=== PATIENT | male | born 1960 | race Caucasian/White ===

== ENCOUNTER → 2020-04-13 | Outpatient (CLI) | payer BC | END | disposition home or self-care (01) | LOC: LABWHC1 15:42 | PROVIDERS: ATTEND Internal Medicine | DX: Z20.828 Contact with and (suspected) exposure to other viral communicable diseases (principal) | CPT/HCPCS: U0003; C9803 ==

== ENCOUNTER 2020-04-18 12:26 | Emergency (ER) | payer BC ==
--- NOTE | 2020-04-18 13:01 | ED ---
Neck Injury/Pain HPI - General Chief Complaint: Neck Pain/Injury Stated Complaint: Neck pain,Tumor in neck Time Seen by Provider: 04/18/20 12:45 Mode of arrival: ambulatory Limitations: no limitations - History of Present Illness Initial Comments: 59-year-old male presenting to emergency Department with a chief complaint of a neck mass. Patient states he has history of calcium stones for the past several years. Patient states they typically come and go with this one has remained longer than usual. He states has been gradually increased in size and now he's having some discomfort. Patient is concerned that the mass is pushing in his carotid artery. Patient is denying drooling, odontophagia or dysphagia. He denies any night sweats fevers or chills. He denies any chest pain or shortness of breath. - Related Data Previous Rx's Medication Instructions Recorded Amoxicillin/Potassium Clav 1 tab PO Q12HR #20 tab 04/18/20 [Augmentin 875-125 Tablet] Allergies Allergy/AdvReac Type Severity Reaction Status Date / Time No Known Allergies Allergy Verified 04/18/20 12:36 Review of Systems ROS Statement: Those systems with pertinent positive or pertinent negative responses have been documented in the HPI. ROS Other: All systems not noted in ROS Statement are negative. Past Medical History Past Medical History: Hypertension Additional Past Medical History / Comment(s): gout History of Any Multi-Drug Resistant Organisms: None Reported Past Surgical History: No Surgical Hx Reported Past Psychological History: No Psychological Hx Reported Smoking Status: Never smoker Past Alcohol Use History: None Reported Past Drug Use History: None Reported General Exam Limitations: no limitations General appearance: alert, in no apparent distress Head exam: Present: atraumatic, normocephalic, normal inspection Eye exam: Present: normal appearance, PERRL, EOMI Pupils: Present: normal accommodation ENT exam: Present: normal exam, normal oropharynx (No signs of lesions or drainage from the salivary ducts.), mucous membranes moist, TM's normal bilaterally, normal external ear exam Neck exam: Present: normal inspection (Palpable mass in the left some mandibular region), tenderness (Mild tenderness in the left submandibular region.), full ROM Respiratory exam: Present: normal lung sounds bilaterally. Absent: respiratory distress, wheezes, rales Cardiovascular Exam: Present: regular rate, normal rhythm, normal heart sounds. Absent: systolic murmur, diastolic murmur Extremities exam: Present: normal inspection, full ROM, normal capillary refill. Absent: tenderness, pedal edema, joint swelling Back exam: Present: normal inspection, full ROM. Absent: tenderness, CVA tenderness (R), CVA tenderness (L) Neurological exam: Present: alert, oriented X3, normal gait Psychiatric exam: Present: normal affect, normal mood Skin exam: Present: warm, dry, intact, normal color Course Vital Signs 04/18/20 12:36 Temperature 98.6 F Pulse Rate 90 Respiratory 16 Rate Blood Pressure 169/72 O2 Sat by Pulse 97 Oximetry Medical Decision Making - Medical Decision Making 59-year-old male presenting to the emergency room with a chief complaint of a neck mass. CT of the neck obtained reveals an enlarged left parotid gland. There is no overlying cellulitic skin changes. Neoplasm cannot be excluded per radiology. I contacted Alphonse who advised the patient can be started on Augmentin. He also said that he will see the patient in the office. Strict return parameters were thoroughly discussed with patient was understanding and agreeable. Patient started on Augmentin in the ED. Will be discharged with 10 day course of Augmentin. Case discussed with physician. Disposition Clinical Impression: Enlarged parotid gland, Neck mass Disposition: HOME SELF-CARE Condition: Stable Instructions (If sedation given, give patient instructions): Parotid Duct Obstruction (ED) Additional Instructions: Follow-up with ENT. Take prescribed medication as directed. Return to emergency department if symptoms worsen. Prescriptions: Amoxicillin/Potassium Clav [Augmentin 875-125 Tablet] 1 tab PO Q12HR #20 tab Is patient prescribed a controlled substance at d/c from ED?: No Referrals: Vivian Aldana MD [Primary Care Provider] - 1-2 days Antonio Nichole DO [Doctor of Osteopathic Medicine] - 1-2 days Time of Disposition: 13:41
--- NOTE | 2020-04-18 13:20 | CT ---
EXAMINATION TYPE: CT soft tissue neck wo con DATE OF EXAM: 04/18/2020 COMPARISON: None HISTORY: Tumor in neck, neck pain CT DLP: 352.0 mGycm CONTRAST: The neck was performed without contrast. The lack of contrast limits evaluation. Imaging was performe d from the skull base through the lung apices. Contrast enhanced CT of the neck was performed from the skull base through the lung apices. AIRWAY: The supraglottic, glottic, and subglottic portions of the airway appear patent and free of mass. SALIVARY GLANDS: There is massive enlargement of the left parotid gland which measures 3.8 x 3.3 x 4 .5 cm. The right sided gland for comparison measures 1.7 x 1.7 x 3.6 cm. Findings may reflect underly ing neoplasm. Infection is not excluded however. The parotid glands are free of mass or inflammatory process. THYROID GLAND: No nodules or masses seen. LYMPH NODES: No adenopathy seen greater than 1cm. LUNG APICES: No nodule or mass is seen. OTHER: Vascular structures are patent. No significant degenerative change of the cervical spine. N o abscess seen. Mucosal thickening left maxillary sinus. IMPRESSION: 1. Nonspecific mass enlargement of the left submandibular gland. Suspect underlying neoplasm. Tractio n not excluded. Correlate clinically. ENT consult advised.
[2020-04-18] MEDS ORDERED: AMOXIC-POT CLAV 875-125MG 1 EACH TAB PO STA (13:40)
[2020-04-18 13:56] VITALS: BP 166/78; PULSE 87; RESP 18; TEMP 98.1
== END 2020-04-18 13:55 | disposition home or self-care (01) ==
LOC: EC 12:26
DX: K11.1 Hypertrophy of salivary gland (principal); R22.1 Localized swelling, mass and lump, neck
CPT/HCPCS: 70490; 99283

== ENCOUNTER → 2020-05-19 | Outpatient (CLI) | payer BC | END | disposition home or self-care (01) | LOC: LABPAT 15:09 | PROVIDERS: ATTEND Otolaryngology | DX: Z01.818 Encounter for other preprocedural examination (principal); I10 Essential (primary) hypertension | CPT/HCPCS: 93005 ==

== ENCOUNTER → 2020-07-08 | Outpatient (CLI) | payer BC | END | disposition home or self-care (01) | LOC: LABWHC1 15:31 | PROVIDERS: ATTEND Otolaryngology | DX: Z01.818 Encounter for other preprocedural examination (principal) | CPT/HCPCS: U0003; C9803 ==

== ENCOUNTER 2024-03-26 08:43 | Emergency (ER) | payer BC ==
[2024-03-26 08:50] VITALS: TEMP 97.6
[2024-03-26] MEDS: ALPRAZolam 0.25 MG TAB PO STA (09:22)
--- NOTE | 2024-03-26 09:24 | ED ---
General Adult HPI - General Chief complaint: Extremity Problem,Nontraumatic Stated complaint: R arm pain/swelling Time Seen by Provider: 03/26/24 08:45 Source: patient Mode of arrival: ambulatory Limitations: no limitations - History of Present Illness Initial comments: Dictation was produced using [employer] dictation software. please excuse any grammatical, word or spelling errors. Chief Complaint: 64-year-old male presents with right wrist pain History of Present Illness: Patient 64-year-old male presents emergency department with right wrist pain. Since yesterday started to have some pain in his right wrist. Hurts more when he flexes and extends it. 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 States that he is pain and swelling over the dorsum of his hand. Denies any numbness tingling paresthesias to his digits. No other complaints. The ROS documented in this emergency department record has been reviewed and confirmed by me. Those systems with pertinent positive or negative responses have been documented in the HPI. All other systems are other negative and/or noncontributory. - Related Data Previous Rx's Medication Instructions Recorded Amoxicillin/Potassium Clav 1 tab PO Q12HR #20 tab 04/18/20 [Augmentin 875-125 Tablet] Allergies Allergy/AdvReac Type Severity Reaction Status Date / Time No Known Allergies Allergy Verified 04/18/20 12:36 Review of Systems ROS Statement: Those systems with pertinent positive or pertinent negative responses have been documented in the HPI. ROS Other: All systems not noted in ROS Statement are negative. Past Medical History Past Medical History: Hypertension, Osteoarthritis (OA) Additional Past Medical History / Comment(s): gout History of Any Multi-Drug Resistant Organisms: None Reported Past Surgical History: No Surgical Hx Reported Additional Past Surgical History / Comment(s): benign tumor removed from neck Past Psychological History: No Psychological Hx Reported Smoking Status: Never smoker Past Alcohol Use History: None Reported Past Drug Use History: None Reported General Exam - General Exam Comments Initial Comments: General: Well-appearing, nontoxic, no acute distress. Head: Normocephalic, atraumatic Eyes: PERRLA, EOMI ENT: Airway patent Chest: Nonlabored breathing Skin: No visual rash, normal skin tone Neuro: Alert and oriented 3 Musculoskeletal: No gross abnormalities Right upper extremity: Very minimal swelling noted over the dorsum of the wrist. Good cap refill. Radial pulse intact. No pain or swelling in the biceps or forearm area Limitations: no limitations Course Vital Signs 03/26/24 08:45 Temperature 97.6 F Pulse Rate 75 Respiratory 18 Rate Blood Pressure 195/85 O2 Sat by Pulse 97 Oximetry Medical Decision Making - Medical Decision Making Was pt. sent in by a medical professional or institution (, PA, PUBLIC HEALTH OFFICER, urgent care, hospital, or detention...) When possible be specific @ -No Did you speak to anyone other than the patient for history (EMS, parent, family, police, friend...)? What history was obtained from this source @ -No Did you review nursing and triage notes (agree or disagree)? Why? @ -I reviewed and agree with nursing and triage notes Were old charts reviewed (outside hosp., previous admission, EMS record, old EKG, old radiological studies, urgent care reports/EKG's, detention records)? Report findings @ -No old charts were reviewed Differential Diagnosis (chest pain, altered mental status, abdominal pain women, abdominal pain men, vaginal bleeding, musculoskeletal, weakness, fever, dyspnea, syncope, headache, dizziness, GI bleed, back pain, seizure, CVA, palpatations, mental health)? @ -Carpal tunnel, wrist arthritis, carpal dislocation EKG interpreted by me (3pts min.). @ -None done X-rays interpreted by me (1pt min.). @ -Wrist x-ray shows radial ulnar joint space narrowing and ossific density CT interpreted by me (1pt min.). @ -None done U/S interpreted by me (1pt. min.). @ -None done What testing was considered but not performed or refused? (CT, X-rays, U/S, labs)? Why? @ -None What meds were considered but not given or refused? Why? @ -None Was smoking cessation discussed for >3mins.? @ -No Were there social determinants of health that impacted care today? How? (Homelessness, low income, unemployed, alcoholism, drug addiction, transportation, low edu. Level, literacy, decrease access to med. care, assisted, rehab)? @ -No Was there de-escalation of care discussed even if they declined (Discuss DNR or withdrawal of care, Hospice)? DNR status @ -No What co-morbidities impacted this encounter? (DM, HTN, Smoking, COPD, CAD, Cancer, CVA, ARF, Chemo, Hep., AIDS, mental health diagnosis, sleep apnea, morbid obesity)? @ -None Was patient admitted / discharged? Hospital course, mention meds given and route, prescriptions, significant lab abnormalities, going to OR and other pertinent info. @ -63-year-old male presents with wrist pain. He performs in a job that promotes repetitive stress to the wrist. Patient has findings of arthritis on his wrist x-ray. Vital signs stable. No high risk features. Patient dis charged with referral to hand specialist. Did you discuss the management of the patient with other professionals (professionals i.e. , PA, PUBLIC HEALTH OFFICER, lab, RT, psych nurse, social service liaison, network security engineer, teacher, chief safety officer, case advocate)? Give summary @ -No Was critical care preformed (if so, how long)? @ -No Undiagnosed new problem with uncertain prognosis? @ -No Drug Therapy requiring intensive monitoring for toxicity (Heparin, Nitro, Insulin, Cardizem)? @ -No Were any procedures done? @ -No Diagnosis/symptom? Acute, or Chronic, or Acute on Chronic? Uncomplicated (without systemic symptoms) or Complicated (systemic symptoms)? @ -Wrist arthritis Side effects of treatment? @ -No Exacerbation, Progression, or Severe Exacerbation? @ -No Poses a threat to life or bodily function? How? (Chest pain, USA, MS, pneumonia, PE, COPD, DKA, ARF, appy, cholecystitis, CVA, Diverticulitis, Homicidal, Suicidal, threat to staff... and all critical care pts) @ -yes Disposition Clinical Impression: Wrist strain Disposition: HOME SELF-CARE Condition: Good Instructions (If sedation given, give patient instructions): Wrist Injury (ED) Is patient prescribed a controlled substance at d/c from ED?: No Referrals: Liz Griggs DO [Doctor of Osteopathic Medicine] - 1-2 days Time of Disposition: 10:15
--- NOTE | 2024-03-26 10:01 | XR ---
EXAMINATION TYPE: XR wrist complete RT DATE OF EXAM: 03/26/2024 CLINICAL HISTORY: pain TECHNIQUE: Frontal, lateral and oblique images of the right wrist are obtained. COMPARISON: None. FINDINGS: There is no acute fracture/dislocation evident. Radioulnar joint space narrowing. Well-corticated oss ific density is nonacute in nature may reflect unfused ossicle. The overlying soft tissue appears unr emarkable. IMPRESSION: There is no acute fracture or dislocation seen. ICD 10 NO FRACTURE, INITIAL EVALUATION [facility], , 03/26/2024 9:58 AM
[2024-03-26] MEDS: traMADol 50 MG STARTER PACK 3 TAB BTL PO STA (10:38)
[2024-03-26 10:42] VITALS: BP 153/68; PULSE 74; RESP 16
== END 2024-03-26 10:42 | disposition home or self-care (01) ==
LOC: EC 08:43
CPT/HCPCS: 93005; 99283

== ENCOUNTER 2024-08-11 11:33 | Observation (INO) | payer BC ==
--- NOTE | 2024-08-11 12:17 | ED ---
General Adult HPI - General Chief complaint: Upper Respiratory Infection Stated complaint: Dehydration Time Seen by Provider: 08/11/24 12:00 Source: patient, RN notes reviewed, old records reviewed Mode of arrival: ambulatory Limitations: no limitations - History of Present Illness Initial comments: This is a 63-year-old male who presents to the emergency department complaining of cough and he states he has been coughing so hard he vomited a few times since Sunday. Patient states he thinks he had a fever as well. Patient denies any shortness of breath except when he is coughing. Patient denies any anterior chest pain just sitting here. Patient denies any back pain. Patient denies any diaphoretic episode. Patient denies any diarrhea. Patient denies getting a flu shot - Related Data Home Medications Medication Instructions Recorded Confirmed Garlic 2,000 mg PO DAILY 03/26/24 08/11/24 Metoprolol Tartrate [Lopressor] 25 mg PO BID 03/26/24 08/11/24 Milk Thistle 150 mg PO BID 03/26/24 08/11/24 Multivit-Min/FA/Lycopen/Lutein 1 tab PO DAILY 03/26/24 08/11/24 [Centrum Silver Tablet] [place]-3/Dha/Epa/Fish Oil [Fish Oil 1 cap PO DAILY 03/26/24 08/11/24 1,000 mg Softgel] Red Yeast Rice 600 mg PO BID 03/26/24 08/11/24 Rosuvastatin [Crestor] 10 mg PO DAILY 03/26/24 08/11/24 Ubidecarenone [Coenzyme Q10] 200 mg PO DAILY 03/26/24 08/11/24 Zinc Gluconate [Zinc] 50 mg PO DAILY 03/26/24 08/11/24 lisinopriL [Zestril] 10 mg PO BID 03/26/24 08/11/24 Allergies Allergy/AdvReac Type Severity Reaction Status Date / Time No Known Allergies Allergy Verified 08/11/24 14:06 Review of Systems ROS Statement: Those systems with pertinent positive or pertinent negative responses have been documented in the HPI. ROS Other: All systems not noted in ROS Statement are negative. Past Medical History Past Medical History: Hypertension, Osteoarthritis (OA) Additional Past Medical History / Comment(s): gout History of Any Multi-Drug Resistant Organisms: None Reported Past Surgical History: No Surgical Hx Reported Additional Past Surgical History / Comment(s): benign tumor removed from neck Past Psychological History: No Psychological Hx Reported Smoking Status: Never smoker Past Alcohol Use History: None Reported Past Drug Use History: None Reported General Exam - General Exam Comments Initial Comments: GENERAL: Patient is well-developed and well-nourished. Patient is nontoxic and well- hydrated and is in mild distress. ENT: Neck is soft and supple. No significant lymphadenopathy is noted. Oropharynx is clear. Moist mucous membranes. Neck has full range of motion without eliciting any pain. EYES: The sclera were anicteric and conjunctiva were pink and moist. Extraocular movements were intact and pupils were equal round and reactive to light. Eyelids were unremarkable. PULMONARY: Unlabored respirations. Good breath sounds bilaterally. No audible rales rhonchi or wheezing was noted. CARDIOVASCULAR: There is a regular rate and rhythm without any murmurs gallops or rubs. ABDOMEN: Soft and nontender with normal bowel sounds. SKIN: Skin is clear with no lesions or rashes and otherwise unremarkable. NEUROLOGIC: Patient is alert and oriented x3. Cranial nerves II through XII are grossly intact. Motor and sensory are also intact. Normal speech, volume and content. Symmetrical smile. MUSCULOSKELETAL: Normal extremities with adequate strength and full range of motion. LYMPHATICS: No significant lymphadenopathy is noted PSYCHIATRIC: Normal psychiatric evaluation. Limitations: no limitations Course Vital Signs 08/11/24 11:34 Temperature 103.1 F H Pulse Rate 84 Respiratory 18 Rate Blood Pressure 182/72 O2 Sat by Pulse 96 Oximetry Medical Decision Making - Medical Decision Making EKG is interpreted by myself but EKG shows a sinus rhythm at 78 bpm GA interval is 219 QRS is 120 QT interval 364 QTc is 397. Patient does have some ST segment elevation in V1 and V2 that seem to form previous EKGs and this does not look consistent with an PA. I did send this EKG to Dr. Croft and he was in agreement it did not look like a STEMI Was pt. sent in by a medical professional or institution (, PA, PONDMAN, urgent care, hospital, or prison...) When possible be specific @ -No Did you speak to anyone other than the patient for history (EMS, parent, family, police, friend...)? What history was obtained from this source @ -No Did you review nursing and triage notes (agree or disagree)? Why? @ -I reviewed and agree with nursing and triage notes Were old charts reviewed (outside hosp., previous admission, EMS record, old EKG, old radiological studies, urgent care reports/EKG's, prison records)? Report findings @ -No old charts were reviewed Differential Diagnosis? @ -Influenza A, influenza B, RSV, COVID, this is not an all-inclusive list Differential Chest Pain: Stable Angina, Unstable Angina, STEMI, NSTEMI Aortic Dissection, Pneumothorax, Musculoskeletal, Esophageal Spasm GERD, Cholecystitis, Pancreatitis, Zoster, this is not meant to be an all-inclusive list. EKG interpreted by me (3pts min.). @ -As above X-rays interpreted by me (1pt min.). @ -Chest x-ray shows viral pneumonia CT interpreted by me (1pt min.). @ -None done U/S interpreted by me (1pt. min.). @ -None done What testing was considered but not performed or refused? (CT, X-rays, U/S, labs)? Why? @ -None What meds were considered but not given or refused? Why? @ -None Did you discuss the management of the patient with other professionals (professionals i.e. , PA, PONDMAN, lab, RT, psych nurse, director social service, lead qa analyst, teacher, customs patrol officer, lead case manager)? Give summary @ -I spoke with [facility] hospitalist they agreed to admit the patient Was smoking cessation discussed for >3mins.? @ -No Was critical care preformed (if so, how long)? @ -No Were there social determinants of health that impacted care today? How? (Homelessness, low income, unemployed, alcoholism, drug addiction, transp ortation, low edu. Level, literacy, decrease access to med. care, prison, rehab)? @ -No Was there de-escalation of care discussed even if they declined (Discuss DNR or withdrawal of care, Hospice)? DNR status @ -No What co-morbidities impacted this encounter? (DM, HTN, Smoking, COPD, CAD, Cancer, CVA, ARF, Chemo, Hep., AIDS, mental health diagnosis, sleep apnea, morbid obesity)? @ -None Was patient admitted / discharged? Hospital course, mention meds given and route, prescriptions, significant lab abnormalities, going to OR and other pertinent info. @ -Patient's troponin was mildly elevated he was also positive for influenza A. Patient will be admitted for 23-hour observation with repeat troponins Undiagnosed new problem with uncertain prognosis? @ -No Drug Therapy requiring intensive monitoring for toxicity (Heparin, Nitro, Insulin, Cardizem)? @ -No Were any procedures done? @ -No Diagnosis/symptom? @ -Chest pain Acute, or Chronic, or Acute on Chronic? @ -Acute Uncomplicated (without systemic symptoms) or Complicated (systemic symptoms)? @ -Complicated Side effects of treatment? @ -No Exacerbation, Progression, or Severe Exacerbation? @ -No Poses a threat to life or bodily function? How? (Chest pain, USA, PA, pneumonia, PE, COPD, DKA, ARF, appy, cholecystitis, CVA, Diverticulitis, Homicidal, Suicidal, threat to staff... and all critical care pts) @ -Yes this could lead to an PA and endorgan dysfunction Diagnosis/symptom? @ -Influenza A Acute, or Chronic, or Acute on Chronic? @ -Acute Uncomplicated (without systemic symptoms) or Complicated (systemic symptoms)? @ -Complicated Side effects of treatment? @ -None Exacerbation, Progression, or Severe Exacerbation] @ -No Poses a threat to life or bodily function? @ -No - Lab Data Result diagrams: 08/11/24 12:30 08/11/24 12:30 Lab Results 08/11/24 08/11/24 08/11/24 Range/Units 12:30 12:30 12:30 WBC 6.6 (3.8-10.6) k/uL RBC 4.88 (4.30-5.90) m/uL Hgb 13.3 (13.0-17.5) gm/dL Hct 42.0 (39.0-53.0) % MCV 86.0 (80.0-100.0) fL MCH 27.3 (25.0-35.0) pg MCHC 31.7 (31.0-37.0) g/dL RDW 13.2 (11.5-15.5) % Plt Count 162 (150-450) k/uL MPV 8.2 Neutrophils % 81 % Lymphocytes % 8 % Monocytes % 8 % Eosinophils % 1 % Basophils % 0 % Neutrophils # 5.3 (1.3-7.7) k/uL Lymphocytes # 0.5 L (1.0-4.8) k/uL Monocytes # 0.6 (0-1.0) k/uL Eosinophils # 0.0 (0-0.7) k/uL Basophils # 0.0 (0-0.2) k/uL Sodium 132 L (137-145) mmol/L Potassium 4.2 (3.5-5.1) mmol/L Chloride 99 (98-107) mmol/L Carbon Dioxide 21 L (22-30) mmol/L Anion Gap 12 mmol/L BUN 16 (9-20) mg/dL Creatinine 1.04 (0.66-1.25) mg/dL Est GFR (CKD-EPI)AfAm 89 (>60 ml/min/1.73 sqM) Est GFR (CKD-EPI)NonAf 77 (>60 ml/min/1.73 sqM) Glucose 110 H (74-99) mg/dL Calcium 8.3 L (8.4-10.2) mg/dL Total Bilirubin 0.6 (0.2-1.3) mg/dL AST 43 (17-59) U/L ALT 27 (4-49) U/L Alkaline Phosphatase 44 (38-126) U/L Troponin I (0.000-0.034) ng/mL Total Protein 6.4 (6.3-8.2) g/dL Albumin 3.8 (3.5-5.0) g/dL Influenza Type A (PCR) Detected A (Not Detectd) Influenza Type B (PCR) Not Detected (Not Detectd) RSV (PCR) Not Detected (Not Detectd) SARS-CoV-2 (PCR) Not Detected (Not Detectd) 08/11/24 Range/Units 12:30 WBC (3.8-10.6) k/uL RBC (4.30-5.90) m/uL Hgb (13.0-17.5) gm/dL Hct (39.0-53.0) % MCV (80.0-100.0) fL MCH (25.0-35.0) pg MCHC (31.0-37.0) g/dL RDW (11.5-15.5) % Plt Count (150-450) k/uL MPV Neutrophils % % Lymphocytes % % Monocytes % % Eosinophils % % Basophils % % Neutrophils # (1.3-7.7) k/uL Lymphocytes # (1.0-4.8) k/uL Monocytes # (0-1.0) k/uL Eosinophils # (0-0.7) k/uL Basophils # (0-0.2) k/uL Sodium (137-145) mmol/L Potassium (3.5-5.1) mmol/L Chloride (98-107) mmol/L Carbon Dioxide (22-30) mmol/L Anion Gap mmol/L BUN (9-20) mg/dL Creatinine (0.66-1.25) mg/dL Est GFR (CKD-EPI)AfAm (>60 ml/min/1.73 sqM) Est GFR (CKD-EPI)NonAf (>60 ml/min/1.73 sqM) Glucose (74-99) mg/dL Calcium (8.4-10.2) mg/dL Total Bilirubin (0.2-1.3) mg/dL AST (17-59) U/L ALT (4-49) U/L Alkaline Phosphatase (38-126) U/L Troponin I 0.044 H* (0.000-0.034) ng/mL Total Protein (6.3-8.2) g/dL Albumin (3.5-5.0) g/dL Influenza Type A (PCR) (Not Detectd) Influenza Type B (PCR) (Not Detectd) RSV (PCR) (Not Detectd) SARS-CoV-2 (PCR) (Not Detectd) Disposition Clinical Impression: Influenza, Chest pain Disposition: ADMITTED IP TO THIS HOSP Referrals: Vivian Aldana MD [Primary Care Provider] - 1-2 days Time of Disposition: 14:45
[2024-08-11] MEDS: ACETAMINOPHEN TAB 500 MG TAB PO STA (12:41)
[2024-08-11] MEDS: IBUPROFEN 600 MG TAB PO STA (12:41)
[2024-08-11] MEDS: SODIUM CHLORIDE 0.9% 1,000 ML IV ONE (12:42)
[2024-08-11 12:58] LABS: Basophils % (A) 0 %; Eosinophils % (A) 1 %; HGB 13.3 gm/dL (13.0-17.5); Lymphocytes # (A) 0.5 k/uL (1.0-4.8); Lymphocytes % (A) 8 %; MCH 27.3 pg (25.0-35.0); MCHC 31.7 g/dL (31.0-37.0); Mean Platelet Volume 8.2; Monocytes # (A) 0.6 k/uL (0-1.0); Monocytes % (A) 8 %; Neutrophils # (A) 5.3 k/uL (1.3-7.7); Neutrophils % (A) 81 %; Platelet Count 162 k/uL (150-450); RBC 4.88 m/uL (4.30-5.90); RDW 13.2 % (11.5-15.5); WBC 6.6 k/uL (3.8-10.6)
[2024-08-11 13:08] LABS: ALT 27 U/L (4-49); AST 43 U/L (17-59); African American GFR (CKD) 89 (>60 ml/min/1.73 sqM); Albumin 3.8 g/dL (3.5-5.0); Alkaline Phosphatase 44 U/L (38-126); Anion Gap 12 mmol/L; Blood Urea Nitrogen 16 mg/dL (9-20); Calcium 8.3 mg/dL (8.4-10.2); Carbon Dioxide 21 mmol/L (22-30); Chloride 99 mmol/L (98-107); Glucose 110 mg/dL (74-99); Non-African American GFR(CKD) 77 (>60 ml/min/1.73 sqM); Potassium 4.2 mmol/L (3.5-5.1); Sodium 132 mmol/L (137-145); Total Bilirubin 0.6 mg/dL (0.2-1.3); Total Protein 6.4 g/dL (6.3-8.2)
[2024-08-11 13:32] LABS: Influenza A Detected (Not Detectd); Influenza B Not Detected (Not Detectd); RSV Not Detected (Not Detectd)
--- NOTE | 2024-08-11 14:18 | XR ---
EXAMINATION TYPE: XR chest 2V DATE OF EXAM: 08/11/2024 1:43 PM COMPARISON: None CLINICAL INDICATION: Male, 63 years old with history of Chest Trauma; [facility] TECHNIQUE: XR chest 2V Frontal and lateral views of the chest. FINDINGS: Lungs/Pleura: There is no evidence of pleural effusion, focal consolidation, or pneumothorax. Pulmonary vascularity: Unremarkable. Heart/mediastinum: Cardiomediastinal silhouette is unremarkable. Musculoskeletal: No acute osseous pathology. Other findings: None IMPRESSION: Low lung volumes with a generalized hazy appearance which could represent atelectasis versus atypical pneumonia. [facility], , 08/11/2024 2:16 PM
[2024-08-11] MEDS ORDERED: NITROGLYCERIN SL TABS 0.4 MG TAB SUBLINGUAL PRN (14:45)
[2024-08-11] MEDS: ASPIRIN 81 MG PO STA (14:58)
[2024-08-11] MEDS: NITROGLYCERIN OINT 1 INCH/GM PACKET TOPICAL SCH (17:48)
[2024-08-12] MEDS: ACETAMINOPHEN TAB 500 MG TAB PO PRN (02:20)
[2024-08-12] MEDS: METOPROLOL TARTRATE 25 MG TAB PO SCH (08:26)
[2024-08-12] MEDS: lisinopriL 10 MG TAB PO SCH (08:26)
[2024-08-12] MEDS: ASPIRIN 325 MG TAB PO SCH (08:26)
[2024-08-12] MEDS: ATORVASTATIN 20 MG TAB PO SCH (08:26)
[2024-08-12] MEDS: OSELTAMIVIR 75 MG CAP PO SCH (08:27)
[2024-08-12 09:47] LABS: VLDL Calculation 14.38 mg/dL (5.00-40.00)
--- NOTE | 2024-08-12 10:55 | P.CRDCN ---
History of Present Illness Consult date: 08/12/24 Consult reason: chest pain History of present illness: This is a 63-year-old male patient previously seen by Dr. Rodriguez in 2021 with past medical history of hyperlipidemia, hypertension. We have been asked to evaluate the patient for chest pain. Patient states that he developed a cough was feeling weak and dizzy. He states some people at work had COVID and influenza B and he decided to go to the urgent care center. He was told that he was dehydrated and was told to go into the hospital for further evaluation. Patient ended up testing positive for influenza A. He denies any other symptoms. No chest pain, no palpitations. He states he is usually very active and does not have chest pain when he is active. We have been asked to evaluate the patient for elevated troponins. Blood pressure 143/69, heart rate in the 70s, pulse ox 94% on room air. Patient has been started on Tamiflu, status post 1 L of IV fluids Tylenol and Motrin. Patient is seen today in the emergency center waiting for a bed on the cardiac stepdown unit. Discussed the results of testing and recommendations. At this time hold off on cardiac catheterization as patient is having no symptoms at this time. He is in agreement to hold off. -EKG: Sinus rhythm with LVH with T wave changes present on previous EKGs but more pronounced, STEMI ruled out. -Chest x-ray: Atelectasis versus pneumonia -Laboratory studies: CBC within normal limits. Sodium 132 and potassium 4.2, creatinine 1.04. Troponins 0.044, 0.051 and 0.041. Triglycerides 71, choleste rol 111, HDL 32, LDL 64. Influenza A and B a detected. -Home cardiac medications: Lisinopril 10 mg twice daily, Lopressor 25 mg twice daily, omega-3, rosuvastatin 10 mg daily. -Echocardiogram performed in the office on 07/02/2020 revealed EF 60%, aortic valve is calcified, mild mitral regurgitation. -Cardiolite stress test performed in the office on 07/07/2020 was a negative stress test. Abnormal perfusion with mild reversible ischemia involving the inferior lateral segment. Gated images showed normal wall motion and thickening. At that time, cardiac cath to be done if patient developed any s ymptoms. Review Of Systems: At the time of my exam: CONSTITUTIONAL: Denies fever or chills. HEENT: Denies blurred vision, vision changes, or eye pain. Denies hemoptysis CARDIOVASCULAR: Denies chest pain. Denies orthopnea. Denies PND. Denies palpitations RESPIRATORY: Denies shortness of breath. GASTROINTESTINAL: Denies abdominal pain. Denies nausea or vomiting. HEMATOLOGIC: Denies bleeding disorders. GENITOURINARY: Denies any blood in urine. SKIN: Denies puritis. Denies rash. Physical examination: Gen: This is a 63-year-old male in no acute distress VS: reviewed HEENT: Head is atraumatic, normocephalic. Pupils equal, round. Sclerae is anicteric. NECK: Supple. No JVD. LUNGS: Clear to auscultation. No wheezes or rhonchi. No intercostal retractions. HEART: Regular rate and rhythm. No murmur. ABDOMEN: Soft No tenderness. EXTREMITIES: No pedal edema. No calf tenderness. NEUROLOGICAL: Patient is awake, alert and oriented x3. Assessment: Elevated troponins most likely secondary to influenza Influenza A Abnormal stress test in 2020 Hypertension Hyperlipidemia Family history of premature coronary artery disease Plan: Resume patient's home cardiac medications Obtain 2-D echocardiogram and Doppler study to assess cardiac structure and function Patient will need CAD evaluation including echocardiogram. Most likely consider outpatient stress testing at a later date once influenza symptoms have resolved. Further recommendations to follow based upon clinical course At the time of discharge, patient may follow-up in the office with Dr. Avila in 2 weeks Thank you kindly for this consultation. Nurse practitioner note has been reviewed, I agree with documented findings and plan of care. Patient was seen and examined. Past Medical History Past Medical History: Hypertension, Osteoarthritis (OA) Additional Past Medical History / Comment(s): gout History of Any Multi-Drug Resistant Organisms: None Reported Past Surgical History: No Surgical Hx Reported Additional Past Surgical History / Comment(s): benign tumor removed from neck Past Psychological History: No Psychological Hx Reported Smoking Status: Never smoker Past Alcohol Use History: None Reported Past Drug Use History: None Reported Medications and Allergies Home Medications Medication Instructions Recorded Confirmed Type Garlic 2,000 mg PO DAILY 03/26/24 08/11/24 History Metoprolol Tartrate [Lopressor] 25 mg PO BID 03/26/24 08/11/24 History Milk Thistle 150 mg PO BID 03/26/24 08/11/24 History Multivit-Min/FA/Lycopen/Lutein 1 tab PO DAILY 03/26/24 08/11/24 History [Centrum Silver Tablet] [place]-3/Dha/Epa/Fish Oil [Fish Oil 1 cap PO DAILY 03/26/24 08/11/24 History 1,000 mg Softgel] Red Yeast Rice 600 mg PO BID 03/26/24 08/11/24 History Rosuvastatin [Crestor] 10 mg PO DAILY 03/26/24 08/11/24 History Ubidecarenone [Coenzyme Q10] 200 mg PO DAILY 03/26/24 08/11/24 History Zinc Gluconate [Zinc] 50 mg PO DAILY 03/26/24 08/11/24 History lisinopriL [Zestril] 10 mg PO BID 03/26/24 08/11/24 History Allergies Allergy/AdvReac Type Severity Reaction Status Date / Time No Known Allergies Allergy Verified 08/11/24 14:06 Physical Exam Vitals: Vital Signs Temp Pulse Resp BP Pulse Ox 08/12/24 06:08 98.7 F 69 20 148/67 94 L 08/12/24 03:24 82 20 122/80 94 L 08/12/24 02:11 100.0 F H 79 18 149/78 95 08/11/24 21:53 89 20 164/80 97 08/11/24 19:00 81 18 130/66 98 08/11/24 16:28 98.9 F 71 18 148/73 95 08/11/24 14:59 67 18 119/61 92 L 08/11/24 11:34 103.1 F H 84 18 182/72 96 Results 08/11/24 12:30 08/11/24 12:30 Cardiac Enzymes 08/11/24 08/11/24 08/11/24 Range/Units 12:30 12:30 16:05 AST 43 (17-59) U/L Troponin I 0.044 H* 0.051 H* (0.000-0.034) ng/mL 08/11/24 Range/Units 20:32 AST (17-59) U/L Troponin I 0.041 H* (0.000-0.034) ng/mL CBC 08/11/24 Range/Units 12:30 WBC 6.6 (3.8-10.6) k/uL RBC 4.88 (4.30-5.90) m/uL Hgb 13.3 (13.0-17.5) gm/dL Hct 42.0 (39.0-53.0) % Plt Count 162 (150-450) k/uL Comprehensive Metabolic Panel 08/11/24 Range/Units 12:30 Sodium 132 L (137-145) mmol/L Potassium 4.2 (3.5-5.1) mmol/L Chloride 99 (98-107) mmol/L Carbon Dioxide 21 L (22-30) mmol/L BUN 16 (9-20) mg/dL Creatinine 1.04 (0.66-1.25) mg/dL Glucose 110 H (74-99) mg/dL Calcium 8.3 L (8.4-10.2) mg/dL AST 43 (17-59) U/L ALT 27 (4-49) U/L Alkaline Phosphatase 44 (38-126) U/L Total Protein 6.4 (6.3-8.2) g/dL Albumin 3.8 (3.5-5.0) g/dL Current Medications Generic Name Dose Route Start Last Admin Trade Name Freq PRN Reason Stop Dose Admin Acetaminophen 1,000 mg 08/11/24 14:51 08/12/24 02:20 Acetaminophen Tab 500 Mg Tab PO 1,000 mg Q6HR PRN Administration Fever and/ or Pain Aspirin 325 mg 08/12/24 09:00 Aspirin 325 Mg Tab PO DAILY [facility] Atorvastatin Calcium 20 mg 08/12/24 09:00 Atorvastatin 20 Mg Tab PO DAILY [facility] Lisinopril 10 mg 08/12/24 09:00 Lisinopril 10 Mg Tab PO BID [facility] Metoprolol Tartrate 25 mg 08/12/24 09:00 Metoprolol Tartrate 25 Mg Tab PO BID [facility] Nitroglycerin 0.4 mg 08/11/24 14:45 Nitroglycerin Sl Tabs 0.4 Mg Tab SUBLINGUAL Q5M PRN Chest Pain Nitroglycerin 1 inch 08/11/24 18:00 08/12/24 06:20 Nitroglycerin Oint 1 Inch/Gm Packet TOPICAL 1 inch Q6HR [facility]IALUISA Administration Oseltamivir Phosphate 75 mg 08/12/24 09:00 Oseltamivir 75 Mg Cap PO 08/16/24 21:01 Q12HR [facility] Protocol 08/11/24 12:30 08/11/24 12:30
[2024-08-12] MEDS ORDERED: guaiFENesin-DM 600/30MG 1 EACH TAB.ER.12H PO PRN (12:20)
[2024-08-12] MEDS ORDERED: DEXTROSE 50% SYRINGE 50 ML IVP PRN ×2 (16:03)
--- NOTE | 2024-08-12 16:05 | P.HPIM ---
History of Present Illness H&P Date: 08/12/24 Patient is a 63-year-old male with history of hypertension and osteoarthritis was re-directed by urgent care physician to come to the ER yesterday on 08/11/2024 after he was complaining of worsening cough since Sunday. Patient has been endorsing dry cough since Sunday which has gotten progressively worse associated with mild shortness of breath and chest pain. Patient reports that he came in contact with his coworker was recently tested positive for influenza virus. Patient went to urgent care yesterday and he was complaining of some chest pain in the midsternal region. Therefore, he was was advised to come to the ER for further evaluation. Patient reports that his chest pain is worse when he is coughing and taking deep breaths. He also initially endorsed mild shortness of breath with some nausea but no vomiting. He reports no prior history of myocardial infarction. Family history is positive for myocardial infarction in his dad in his 70s. Patient reports no recent history of travel, use of anticoagulation, hospitalization. Reports no use of illicit drug. He is a non-smoker and a nondrinker. Initial lab evaluation in the ER shows WBC 6.6, hemoglobin 13.3, hematocrit 42.0, MCV 86.0, platelet count 162, sodium 132, potassium 4.2, bicarb 21, BUN 16, creatinine 1.04, glucose 110, calcium 8.3, AST 43, ALT 27, troponin I 0.044, (subsequently, 0.051, 0.041). Serology positive for influenza type A. Chest x-ray shows no acute cardiopulmonary process. EKG in the ER shows sinus rhythm with first-degree AV block, ventricular rate 78 bpm, OH interval of 290 ms, QRS duration of 120 ms, QTc 397 ms. Poor R wave progression noted. Nonspecific ST-T wave changes noted. Review of systems: Pertinent positives and negatives as discussed in HPI, a complete review of systems was performed and all other systems are negative. Social history: As above in HPI Family History: As above in HPI Physical examination: Vital signs reviewed General: non toxic, no distress, appears at stated age, overweight Derm: no unusual rashes/lesions, warm Head: atraumatic, normocephalic, symmetric Eyes: EOMI, no lid lag, anicteric sclera, pupils equal round reactive to light ENT: Nose and ears atraumatic Neck: No cervical lymphadenopathy, trachea midline, supple Mouth: no lip lesion, mucus membranes moist Cardiovascular: S1S2 reg, no murmur, positive dorsalis pedis pulse bilateral, no edema Lungs: CTA bilateral, no rhonchi, no rales, no accessory muscle use Abdominal: soft, nontender to palpation, no guarding Ext: muscle strength 5 out of 5 in all 4 extremities grossly, no gross muscle atrophy, no contractures, Neuro: CN II-XI grossly intact, no gross focal neuro deficits Psych: Alert, oriented, appropriate affect Assessment/Plan: This is a Patient is a 63-year-old male with history of hypertension and osteoarthritis was directed by urgent care physician to come to the ER yesterday on 08/11/2024 after he was complaining of worsening cough since Sunday. Case was discussed with the Emergency Room provider and decision was made to admit the patient for atypical chest pain, rule out ACS and upper respite tract infection with influenza type a positive Initial lab evaluation in the ER shows WBC 6.6, hemoglobin 13.3, hematocrit 42.0, MCV 86.0, platelet count 162, sodium 132, potassium 4.2, bicarb 21, BUN 16, creatinine 1.04, glucose 110, calcium 8.3, AST 43, ALT 27, troponin I 0.044, (subsequently, 0.051, 0.041). Serology positive for influenza type A. Chest x-ray shows no acute cardiopulmonary process. EKG in the ER shows sinus rhythm with first-degree AV block, ventricular rate 78 bpm, OH interval of 290 ms, QRS duration of 120 ms, QTc 397 ms. Poor R wave progression noted. Nonspecific ST-T wave changes noted. Active: #Atypical chest pain, rule out ACS #Type II myocardial infarction in the setting of influenza type A Heart score 3 points which is low score with a risk of MACE of 0.9 to 1.7% Oxygen therapy as needed Patient received 325 mg p.o. once in ER Start aspirin 81 mg daily Sublingual nitroglycerin and ointment patch Resume Lipitor 20 mg p.o. daily and Lopressor 25 mg p.o. twice daily Consult cardiology, appreciate recs Order echocardiogram Continue cardiac telemetry #Acute Influenza type A #Acute tracheobronchitis Start Tamiflu 75 mg p.o. twice daily Monitor CBC #Hyperglycemia Accu-Cheks and sliding scale insulin Check HbA1c Monitor for hypoglycemia #Hypovolemic hyponatremia secondary poor oral intake Continue monitor sodium levels Encourage oral intake Monitor BMP Chronic conditions #Hypertension #Osteoarthritis Resume lisinopril 10 mg po BID DVT prophylaxis: Lovenox 40 mg subcu daily GI prophylaxis: None F: None E: Replete as needed N: Heart healthy diet A: Ambulatory at baseline The patient is admitted with an anticipated less than than 2 midnight stay for evaluation of atypical chest pain. CODE STATUS: Full code Discussed with: Patient Anticipated discharge place: Pending clinical course Dictation was produced using [employer] dictation software. Please excuse any grammatical, word or spelling errors. Attestation I have seen and examined this patient with my resident , discussed the same with the resident/EDIS, and agree with the dictator's assessment and plan as written GENERAL: The patient is alert and oriented x3, not in any acute distress. Well developed, well nourished. HEENT: Pupils are round and equally reacting to light. EOMI. No scleral icterus. No conjunctival pallor. Normocephalic, atraumatic. No pharyngeal erythema. No thyromegaly. CARDIOVASCULAR: S1 and S2 present. No murmurs, rubs, or gallops. PULMONARY: Chest is clear to auscultation, no wheezing or crackles. ABDOMEN: Soft, nontender, nondistended, normoactive bowel sounds. No palpable organomegaly. MUSCULOSKELETAL: No joint swelling or deformity. EXTREMITIES: No cyanosis, clubbing, or pedal edema. NEUROLOGICAL: Gross neurological examination did not reveal any focal deficits. SKIN: No rashes. Dr. John jamil Past Medical History Past Medical History: Hypertension, Osteoarthritis (OA) Additional Past Medical History / Comment(s): gout History of Any Multi-Drug Resistant Organisms: None Reported Past Surgical History: No Surgical Hx Reported Additional Past Surgical History / Comment(s): benign tumor removed from neck Past Psychological History: No Psychological Hx Reported Smoking Status: Never smoker Past Alcohol Use History: None Reported Past Drug Use History: None Reported Medications and Allergies Home Medications Medication Instructions Recorded Confirmed Type Garlic 2,000 mg PO DAILY 03/26/24 08/11/24 History Metoprolol Tartrate [Lopressor] 25 mg PO BID 03/26/24 08/11/24 History Milk Thistle 150 mg PO BID 03/26/24 08/11/24 History Multivit-Min/FA/Lycopen/Lutein 1 tab PO DAILY 03/26/24 08/11/24 History [Centrum Silver Tablet] [place]-3/Dha/Epa/Fish Oil [Fish Oil 1 cap PO DAILY 03/26/24 08/11/24 History 1,000 mg Softgel] Red Yeast Rice 600 mg PO BID 03/26/24 08/11/24 History Rosuvastatin [Crestor] 10 mg PO DAILY 03/26/24 08/11/24 History Ubidecarenone [Coenzyme Q10] 200 mg PO DAILY 03/26/24 08/11/24 History Zinc Gluconate [Zinc] 50 mg PO DAILY 03/26/24 08/11/24 History lisinopriL [Zestril] 10 mg PO BID 03/26/24 08/11/24 History Allergies Allergy/AdvReac Type Severity Reaction Status Date / Time No Known Allergies Allergy Verified 08/11/24 14:06 Physical Exam Vitals: Vital Signs Temp Pulse Resp BP Pulse Ox 08/12/24 08:27 73 18 94 L 08/12/24 08:26 73 16 143/69 95 08/12/24 06:08 98.7 F 69 20 148/67 94 L 08/12/24 03:24 82 20 122/80 94 L 08/12/24 02:11 100.0 F H 79 18 149/78 95 08/11/24 21:53 89 20 164/80 97 08/11/24 19:00 81 18 130/66 98 08/11/24 16:28 98.9 F 71 18 148/73 95 08/11/24 14:59 67 18 119/61 92 L 08/11/24 11:34 103.1 F H 84 18 182/72 96 Results CBC & Chem 7: 08/13/24 05:34 08/13/24 05:34 Labs: Abnormal Lab Results - Last 24 Hours (Table) 08/11/24 08/11/24 08/11/24 Range/Units 12:30 12:30 12:30 Lymphocytes # 0.5 L (1.0-4.8) k/uL Sodium 132 L (137-145) mmol/L Carbon Dioxide 21 L (22-30) mmol/L Glucose 110 H (74-99) mg/dL Calcium 8.3 L (8.4-10.2) mg/dL Troponin I (0.000-0.034) ng/mL HDL Cholesterol (40.00-60.00) mg/dL Influenza Type A (PCR) Detected A (Not Detectd) 08/11/24 08/11/24 08/11/24 Range/Units 12:30 12:30 16:05 Lymphocytes # (1.0-4.8) k/uL Sodium (137-145) mmol/L Carbon Dioxide (22-30) mmol/L Glucose (74-99) mg/dL Calcium (8.4-10.2) mg/dL Troponin I 0.044 H* 0.051 H* (0.000-0.034) ng/mL HDL Cholesterol 32.60 L (40.00-60.00) mg/dL Influenza Type A (PCR) (Not Detectd) 08/11/24 Range/Units 20:32 Lymphocytes # (1.0-4.8) k/uL Sodium (137-145) mmol/L Carbon Dioxide (22-30) mmol/L Glucose (74-99) mg/dL Calcium (8.4-10.2) mg/dL Troponin I 0.041 H* (0.000-0.034) ng/mL HDL Cholesterol (40.00-60.00) mg/dL Influenza Type A (PCR) (Not Detectd)
[2024-08-12 17:03] LABS: Glucose,Whole Blood 106 mg/dL (70-110)
[2024-08-12] MEDS: INSULIN LISPRO (HumaLOG) 100 UNIT/ML 10 mL VL SQ SCH (17:30)
[2024-08-12] MEDS: ENOXAPARIN 40 MG/0.4 ML SYRINGE SQ SCH (17:37)
[2024-08-12 20:33] LABS: Glucose,Whole Blood 105 mg/dL (70-110)
[2024-08-13 06:14] LABS: Glucose,Whole Blood 95 mg/dL (70-110)
[2024-08-13 06:41] LABS: Basophils % (A) 0 %; Eosinophils % (A) 0 %; HCT 42.2 % (39.0-53.0); HGB 12.9 gm/dL (13.0-17.5); Lymphocytes % (A) 26 %; MCH 26.5 pg (25.0-35.0); MCHC 30.5 g/dL (31.0-37.0); MCV 86.9 fL (80.0-100.0); Mean Platelet Volume 8.5; Monocytes # (A) 0.3 k/uL (0-1.0); Monocytes % (A) 8 %; Neutrophils # (A) 2.5 k/uL (1.3-7.7); Neutrophils % (A) 64 %; Platelet Count 164 k/uL (150-450); RBC 4.85 m/uL (4.30-5.90); RDW 13.3 % (11.5-15.5); WBC 3.9 k/uL (3.8-10.6)
[2024-08-13 07:08] LABS: African American GFR (CKD) >90 (>60 ml/min/1.73 sqM); Anion Gap 9 mmol/L; Blood Urea Nitrogen 18 mg/dL (9-20); Calcium 7.7 mg/dL (8.4-10.2); Carbon Dioxide 25 mmol/L (22-30); Chloride 102 mmol/L (98-107); Glucose 99 mg/dL (74-99); Non-African American GFR(CKD) 83 (>60 ml/min/1.73 sqM); Potassium 4.1 mmol/L (3.5-5.1); Sodium 136 mmol/L (137-145)
[2024-08-13] MEDS: ASPIRIN 81 MG PO SCH (08:16)
[2024-08-13 08:29] VITALS: RESP 20
[2024-08-13 11:36] VITALS: BP 130/61; PULSE 67; TEMP 99.6
[2024-08-13 11:38] LABS: Glucose,Whole Blood 91 mg/dL (70-110)
--- NOTE | 2024-08-13 13:18 | CA ---
Transthoracic Echo Report Name: Ryan Bird Age: 63 Gender: M : 1960 Exam Date: 08/13/2024 08:14 Exam Location: [facility] Ht (in): 69 Wt (lb): 236 Ordering Physician: Henry Oden MD Attending/Referring Phys: Automation Clerk Raghav Greenfield RDCS Procedure CPT: Indications: Cardiac structure eval; Elevated trops Cardiac Hx: Technical Quality: Good Contrast 1: Total Dose (mL): Contrast 2: Total Dose (mL): MEASUREMENTS (Male / Female) Normal Values 2D ECHO LV Diastolic Diameter PLAX 5.5 cm 4.2 - 5.9 / 3.9 - 5.3 cm LV Systolic Diameter PLAX 3.8 cm IVS Diastolic Thickness 1.2 cm 0.6 - 1.0 / 0.6 - 0.9 cm LVPW Diastolic Thickness 1.2 cm 0.6 - 1.0 / 0.6 - 0.9 cm LV Relative Wall Thickness 0.4 RV Internal Dim ED PLAX 3.4 cm LVOT Diameter 1.9 cm Aortic Root Diameter 3.1 cm LA Systolic Diameter LX 4.6 cm 3.0 - 4.0 / 2.7 - 3.8 cm LV Diastolic Volume MOD BP 192.1 cm??? 67 - 155 / 56 - 104 cm??? LV Systolic Volume MOD BP 88.9 cm??? 22 - 58 / 19 - 49 cm??? LV Ejection Fraction MOD BP 53.7 % >= 55 % LV Cardiac Index MOD BP 3200.0 cm???/min???m??? LV Diastolic Volume MOD 4C 175.9 cm??? LV Systolic Volume MOD 4C 79.5 cm??? LV Ejection Fraction MOD 4C 54.8 % LV Cardiac Index MOD 4C 2991.0 cm???/min???m??? LV Diastolic Length 4C 9.5 cm LV Systolic Length 4C 7.7 cm LV Diastolic Volume MOD 2C 200.4 cm??? LV Systolic Volume MOD 2C 95.3 cm??? LV Ejection Fraction MOD 2C 52.5 % LV Cardiac Index MOD 2C 3259.6 cm???/min???m??? LV Diastolic Length 2C 10.0 cm LV Systolic Length 2C 8.1 cm LA Volume 63.3 cm??? 18 - 58 / 22 - 52 cm??? LA Volume Index 27.3 cm???/m??? 16 - 28 cm???/m??? DOPPLER AV Peak Velocity 145.6 cm/s AV Peak Gradient 8.5 mmHg AV Mean Velocity 106.1 cm/s AV Mean Gradient 4.9 mmHg AV Velocity Time Integral 26.4 cm LVOT Peak Velocity 130.8 cm/s LVOT Peak Gradient 6.8 mmHg LVOT Velocity Time Integral 24.0 cm LVOT Stroke Volume 70.8 cm??? LVOT Stroke Volume Index 31.9 ml/m??? LVOT Cardiac Index 2194.4 cm???/min???m??? AV Area Cont Eq vti 2.7 cm??? AV Area Cont Eq pk 2.7 cm??? MV Area PHT 2.5 cm??? Mitral E Point Velocity 65.8 cm/s Mitral A Point Velocity 56.9 cm/s Mitral E to A Ratio 1.2 MV Deceleration Time 300.3 ms TR Peak Velocity 207.9 cm/s TR Peak Gradient 17.3 mmHg Right Atrial Pressure 5.0 mmHg Pulmonary Artery Systolic Pressu 22.3 mmHg Right Ventricular Systolic Press 22.3 mmHg FINDINGS Left Ventricle Left ventricular ejection fraction is estimated at 55-60%.Normal left ventricular systolic function with no obvious regional wall motion abnormalities. Left ventricular cavity size normal. Mildly increased left ventricular wall thickness. Right Ventricle Normal right ventricular size and function. Right ventricular systolic pressure within normal limits. Right Atrium Normal right atrial size. Left Atrium Mildly increased left atrial diameter. Mildly increased left atrial volume. Mildly increased left atrial area. Mitral Valve Structurally normal mitral valv. No mitral stenosis. Mild mitral regurgitation. Thickened mitral valve leaflets Aortic Valve Trileaflet aortic valve. No aortic stenosis. No aortic regurgitation. Tricuspid Valve Structurally normal tricuspid valve. No tricuspid stenosis. Mild tricuspid regurgitation. Pulmonic Valve Structurally normal pulmonic valve. No pulmonic stenosis. No pulmonic regurgitation. Pericardium No pericardial effusion. Aorta Aortic root and proximal ascending aorta not well visualized. CONCLUSIONS 1. Normal left ventricular size and systolic function 2. Mild mitral and tricuspid regurgitation with no evidence of pulmonary hypertension Previewed by: Dr. Edwina Carlton MD (Electronically Signed) Final Date: 13 August 2024 13:17
--- NOTE | 2024-08-13 14:18 | P.PN ---
Subjective Progress Note Date: 08/13/24 Consult reason: chest pain History of present illness: This is a 63-year-old male patient previously seen by Dr. Rodriguez in 2021 with past medical history of hyperlipidemia, hypertension. We have been asked to evaluate the patient for chest pain. Patient states that he developed a cough was feeling weak and dizzy. He states some people at work had COVID and influenza B and he decided to go to the urgent care center. He was told that he was dehydrated and was told to go into the hospital for further evaluation. Patient ended up testing positive for influenza A. He denies any other symptoms. No chest pain, no palpitations. He states he is usually very active and does not have chest pain when he is active. We have been asked to evaluate the patient for elevated troponins. Blood pressure 143/69, heart rate in the 70s, pulse ox 94% on room air. Patient has been started on Tamiflu, status post 1 L of IV fluids Tylenol and Motrin. Patient is seen today in the emergency center waiting for a bed on the cardiac stepdown unit. Discussed the results of testing and recommendations. At this time hold off on cardiac catheterization a s patient is having no symptoms at this time. He is in agreement to hold off. -EKG: Sinus rhythm with LVH with T wave changes present on previous EKGs but more pronounced, STEMI ruled out. -Chest x-ray: Atelectasis versus pneumonia -Laboratory studies: CBC within normal limits. Sodium 132 and potassium 4.2, creatinine 1.04. Troponins 0.044, 0.051 and 0.041. Triglycerides 71, cholesterol 111, HDL 32, LDL 64. Influenza A and B a detected. -Home cardiac medications: Lisinopril 10 mg twice daily, Lopressor 25 mg twice daily, omega-3, rosuvastatin 10 mg daily. -Echocardiogram performed in the office on 07/02/2020 revealed EF 60%, aortic valve is calcified, mild mitral regurgitation. -Cardiolite stress test performed in the office on 07/07/2020 was a negative stress test. Abnormal perfusion with mild reversible ischemia involving the inferior lateral segment. Gated images showed normal wall motion and thickening. At that time, cardiac cath to be done if patient developed any symptoms. 08/13 Patient seen and examined on the cardiac stepdown unit. Patient states that he is feeling better from yesterday. Blood pressure 130/61, heart rate 67, pulse ox 96% on room air. Patient has been afebrile. Repeat blood work reveals hemoglobin 12.9, potassium 4.1, creatinine 0.98. A1c 6.9. Echocardiogram reveals normal left ventricular size and systolic function. Mild mitral and tricuspid regurgitation with no evidence of pulmonary hypertension. Results of the echocardiogram have been reviewed by Dr. Avila with the patient. Physical examination: Gen: This is a 63-year-old male in no acute distress VS: reviewed HEENT: Head is atraumatic, normocephalic. Pupils equal, round. Sclerae is anicteric. NECK: Supple. No JVD. LUNGS: Clear to auscultation. No wheezes or rhonchi. No intercostal retractions. HEART: Regular rate and rhythm. No murmur. ABDOMEN: Soft No tenderness. EXTREMITIES: No pedal edema. No calf tenderness. NEUROLOGICAL: Patient is awake, alert and oriented x3. Assessment: Elevated troponins most likely secondary to influenza Influenza A Abnormal stress test in 2020 Hypertension Hyperlipidemia Family history of premature coronary artery disease Plan: Continue patient's home cardiac medications Patient will need CAD evaluation including echocardiogram. Outpatient stress testing at a later date once influenza symptoms have resolved. At the time of discharge, patient may follow-up in the office with Dr. Avila in 2 weeks No further cardiac workup at this time. Patient is cleared for discharge from cardiology. Nurse practitioner note has been reviewed, I agree with documented findings and plan of care. Patient was seen and examined. Objective - Vital Signs Vital signs: Vital Signs Temp 99.5 F 08/13/24 08:00 Pulse 74 08/13/24 08:00 Resp 20 08/13/24 08:00 BP 119/58 08/13/24 08:00 Pulse Ox 97 08/13/24 08:00 FiO2 Intake & Output 08/12/24 08/13/24 08/13/24 18:59 06:59 18:59 Intake Total 400 240 Balance 400 240 Weight 107.048 kg 102.6 kg Intake: Oral 400 240 Other: Voiding Method Toilet Toilet # Voids 1 - Labs CBC & Chem 7: 08/13/24 05:34 08/13/24 05:34 Labs: Abnormal Lab Results - Last 24 Hours (Table) 03/03/2808/13/24 08/13/24 Range/Units 12:30 05:34 05:34 Hgb 12.9 L (13.0-17.5) gm/dL MCHC 30.5 L (31.0-37.0) g/dL Sodium 136 L (137-145) mmol/L Calcium 7.7 L (8.4-10.2) mg/dL HDL Cholesterol 32.60 L (40.00-60.00) mg/dL
--- NOTE | 2024-08-13 15:09 | P.DS ---
Providers Date of admission: 08/11/24 14:45 Attending physician: John Salazar MD Consults: 08/11/24 14:45 Consult Physician Urgent Consulting Provider: [facility] Consult Reason/Comments: Chest pain Do you want consulting provider notified?: Yes Primary care physician: Vivian Aldana Hospital Course: Discharge Diagnosis: #Atypical chest pain, ACS ruled out #Type II SC in the setting of influenza type A #Acute influenza type A #Acute tracheobronchitis #Type 2 diabetes, HbA1c 6.9% #Hypovolemic hyponatremia, resolved Hospital Course: Patient is a 63-year-old male with history of hypertension and osteoarthritis was re-directed by urgent care physician to come to the ER yesterday on 08/11/2024 after he was complaining of worsening cough since Sunday. Patient has been endorsing dry cough since Sunday which has gotten progressively worse associated with mild shortness of breath and chest pain. Patient reports that he came in contact with his coworker was recently tested positive for influenza virus. Patient went to urgent care yesterday and he was complaining of some chest pain in the midsternal region. Therefore, he was was advised to come to the ER for further evaluation. Patient reports that his chest pain is worse when he is coughing and taking deep breaths. He also initially endorsed mild shortness of breath with some nausea but no vomiting. He reports no prior histo ry of myocardial infarction. Family history is positive for myocardial infarction in his dad in his 70s. Patient reports no recent history of travel, use of anticoagulation, hospitalization. Reports no use of illicit drug. He is a non-smoker and a nondrinker. Initial lab evaluation in the ER shows WBC 6.6, hemoglobin 13.3, hematocrit 42.0, MCV 86.0, platelet count 162, sodium 132, potassium 4.2, bicarb 21, BUN 16, creatinine 1.04, glucose 110, calcium 8.3, AST 43, ALT 27, troponin I 0.044, (subsequently, 0.051, 0.041). Serology positive for influenza type A. Chest x-ray shows no acute cardiopulmonary process. EKG in the ER shows sinus rhythm with first-degree AV block, ventricular rate 78 bpm, ND interval of 290 ms, QRS duration of 120 ms, QTc 397 ms. Poor R wave progression noted. Nonspecific ST-T wave changes noted. 08/13/2024: Patient was seen and examined at the bedside. No acute events overnight. Cardiology was consulted. Echocardiogram shows LVEF estimated 55 to 60%. Sodium levels improved. Patient is otherwise medically stable and optimized for discharge. Discharge instruction: Patient to complete Tamiflu 75 mg twice daily x 5 days. Prescription sent in to pharmacy. Patient completed 3 out of 10 doses in the hospital. Continue with his regular home medications as directed Follow-up with PCP and household appliances salesperson within 1 to 2 weeks Instructions provided on influenza type a Discharge disposition: Home Vital signs reviewed. General: non toxic, no distress, appears at stated age, overweight Derm: no unusual rashes/lesions, warm Head: atraumatic, normocephalic, symmetric Eyes: EOMI, no lid lag, anicteric sclera, pupils equal round reactive to light ENT: Nose and ears atraumatic Neck: No cervical lymphadenopathy, trachea midline, supple Mouth: no lip lesion, mucus membranes moist Cardiovascular: S1S2 reg, no murmur, positive dorsalis pedis pulse bilateral, no edema Lungs: CTA bilateral, no rhonchi, no rales, no accessory muscle use Abdominal: soft, nontender to palpation, no guarding Ext: muscle strength 5 out of 5 in all 4 extremities grossly, no gross muscle atrophy, no contractures, Neuro: CN II-XI grossly intact, no gross focal neuro deficits Psych: Alert, oriented, appropriate affect Dictation was produced using [employer]) dictation software. Please excuse any grammatical, word or spelling errors. Attestation I have seen and examined this patient with my resident , discussed the same with the resident/EDIS, and agree with the dictator's assessment and plan as written Dr. John salazar Plan - Discharge Summary Discharge Rx Participant: No New Discharge Prescriptions: New Oseltamivir [Tamiflu] 75 mg PO Q12HR #7 cap Continue Zinc Gluconate [Zinc] 50 mg PO DAILY Red Yeast Rice 600 mg PO BID [place]-3/Dha/Epa/Fish Oil [Fish Oil 1,000 mg Softgel] 1 cap PO DAILY Ubidecarenone [Coenzyme Q10] 200 mg PO DAILY Milk Thistle 150 mg PO BID Garlic 2,000 mg PO DAILY Rosuvastatin [Crestor] 10 mg PO DAILY Multivit-Min/FA/Lycopen/Lutein [Centrum Silver Tablet] 1 tab PO DAILY lisinopriL [Zestril] 10 mg PO BID Metoprolol Tartrate [Lopressor] 25 mg PO BID Discharge Medication List Garlic 2,000 mg PO DAILY 03/26/24 [History] Metoprolol Tartrate [Lopressor] 25 mg PO BID 03/26/24 [History] Milk Thistle 150 mg PO BID 03/26/24 [History] Multivit-Min/FA/Lycopen/Lutein [Centrum Silver Tablet] 1 tab PO DAILY 03/26/24 [History] Alton-3/Dha/Epa/Fish Oil [Fish Oil 1,000 mg Softgel] 1 cap PO DAILY 03/26/24 [History] Red Yeast Rice 600 mg PO BID 03/26/24 [History] Rosuvastatin [Crestor] 10 mg PO DAILY 03/26/24 [History] Ubidecarenone [Coenzyme Q10] 200 mg PO DAILY 03/26/24 [History] Zinc Gluconate [Zinc] 50 mg PO DAILY 03/26/24 [History] lisinopriL [Zestril] 10 mg PO BID 03/26/24 [History] Oseltamivir [Tamiflu] 75 mg PO Q12HR #7 cap 08/13/24 [Rx] Follow up Appointment(s)/Referral(s): Vivian Aldana MD [Primary Care Provider] - 08/20/24 11:20 am Rod Avila MD [STAFF PHYSICIAN] - 2 Weeks (Office will call you with appointment date/time once they have your hospital records.) Patient Instructions/Handouts: Influenza (DC), High Troponin Levels (ED) Activity/Diet/Wound Care/Special Instructions: Please follow-up with your PCP and household appliances salesperson within 1 to 2 weeks. Discharge Disposition: HOME SELF-CARE
== END 2024-08-13 14:15 | disposition home or self-care (01) ==
LOC: EC 11:33 → 3SCARD 14:45
PROVIDERS: ADMIT Internal Medicine; ATTEND Internal Medicine
DX: J10.1 Influenza due to other identified influenza virus with other respiratory manifestations (principal); I21.A1 Myocardial infarction type 2; J20.9 Acute bronchitis, unspecified; E11.9 Type 2 diabetes mellitus without complications; I08.3 Combined rheumatic disorders of mitral, aortic and tricuspid valves; E87.1 Hypo-osmolality and hyponatremia; E86.1 Hypovolemia; E86.0 Dehydration; E78.5 Hyperlipidemia, unspecified; I10 Essential (primary) hypertension; M19.90 Unspecified osteoarthritis, unspecified site; I44.0 Atrioventricular block, first degree; Z11.52 Encounter for screening for COVID-19; Z11.59 Encounter for screening for other viral diseases; Z79.899 Other long term (current) drug therapy; Z82.49 Family history of ischemic heart disease and other diseases of the circulatory system
CPT/HCPCS: 96360; 96361; 99284; 36415; 93005; 93306; 80061; 80053; 80048; 84484; 85025 ×2; 83036; 87636; 71046; G0378 ×3